=== PATIENT | male | born 1950 | race Caucasian/White ===

== ENCOUNTER 2021-08-28 09:00 | Observation (INO) | payer MEDICARE ==
[~2021-08-28] VITALS: Ht 180.3 cm; Wt 126.0 kg
[2021-08-28 09:51] LABS: BASOPHILS % (AUTO) 0.5 % (0.0-5.0); EOSINOPHILS % (AUTO) 1.6 % (0.0-8.0); HEMATOCRIT 40.4 % (42-54); LYMPHOCYTES % (AUTO) 27.1 % (21.0-51.0); MEAN CORPUSCULAR HEMOGLOBIN 32.9 pg (27.0-33.0); MEAN CORPUSCULAR HGB CONC 34.9 g/dL (32.0-36.0); MEAN CORPUSCULAR VOLUME 94.2 fL (79-99); MONOCYTES % (AUTO) 8.9 % (3.0-13.0); NEUTROPHILS % (AUTO) 61.7 % (40.0-77.0); PLATELET COUNT (AUTO) 231 K/uL (130-400); RED BLOOD CELL COUNT(AUTO) 4.29 MIL/uL (4.50-6.20); WHITE BLOOD COUNT (AUTO) 5.5 K/uL (4.8-10.8)
[2021-08-28 10:01] LABS: POTASSIUM 4.2 mmol/L (3.5-5.1)
[2021-08-28 10:04] LABS: INR 1.05 (0.85-1.15); PROTHROMBIN TIME 11.4 SEC (9.6-11.6)
[2021-08-28 10:05] LABS: PARTIAL THROMBOPLASTIN TIME 28.2 SEC (26.3-35.5)
[2021-08-28 10:23] VITALS: BP 179/73
[2021-08-28 10:57] LABS: APPEARANCE,URINE Clear (CLEAR); BILIRUBIN,URINE Negative (NEGATIVE); COLOR,URINE Yellow (YELLOW); GLUCOSE, URINE (UA) Negative (NEGATIVE); KETONES,URINE Negative (NEGATIVE); LEUKOCYTE ESTERASE ,URINE Negative (NEGATIVE); NITRATE,URINE Negative (NEGATIVE); OCCULT BLOOD,URINE Negative (NEGATIVE); PROTEIN,URINE Negative (NEGATIVE); UROBILINOGEN,URINE 0.2 mg/dL (0.2-1.0)
[2021-08-28] MEDS ORDERED: ZINC220T4 PO (11:20)
[2021-08-28] MEDS ORDERED: ASPI-1443 PO (11:20)
[2021-08-28] MEDS ORDERED: TAMS-1 PO (11:20)
[2021-08-28] MEDS ORDERED: VALS1TAB4 PO (11:20)
[2021-08-28] MEDS ORDERED: TADA5TAB PO (11:20)
[2021-08-28] MEDS ORDERED: BUPR300T53 PO (11:20)
[2021-08-28] MEDS ORDERED: METO-391 PO (11:20)
[2021-08-28] MEDS ORDERED: VITA1CAP85 PO (11:20)
[2021-08-28] MEDS ORDERED: OXCA300T46 PO (11:20)
[2021-08-28] MEDS ORDERED: ALPH50CA PO (11:20)
[2021-08-28] MEDS ORDERED: ASCO100031 PO (11:20)
[2021-08-28] MEDS ORDERED: FINA5TAB41 PO (11:20)
[2021-08-28] MEDS ORDERED: RELIEF FACTOR PO (11:20)
[2021-08-31] VITALS (26 sets, daily range): BP systolic 117–167; BP diastolic 67–104
[2021-08-31] MEDS ORDERED: DEXAMETHASONE SOD PHOSPHATE 10MG/ML 1ML VIAL ONE (07:10)
[2021-08-31] MEDS ORDERED: SUCCINYLCHOLINE CHLORIDE 20 MG/ML 10 ML VIAL ONE (07:10)
[2021-08-31] MEDS ORDERED: GLYCOPYRROLATE 1 MG/5 ML SYRINGE ONE (07:10)
[2021-08-31] MEDS ORDERED: LIDOCAINE PF 100MG/5ML (2%) SYRINGE 5ML ONE (07:10)
[2021-08-31] MEDS ORDERED: NEOSTIGMINE 5MG/5ML SYR IV ONE (07:10)
[2021-08-31] MEDS ORDERED: PROPOFOL 10 MG/ML 20ML VIAL IV ONE (07:10)
[2021-08-31] MEDS ORDERED: MIDAZOLAM HCL 1 MG/ML 2ML VIAL ONE (07:10)
[2021-08-31] MEDS ORDERED: ONDANSETRON 4MG INJ ONE (07:11)
[2021-08-31] MEDS ORDERED: FENTANYL CITRATE PF 50 MCG/1 ML 2ML VIAL ONE ×2 (07:11→11:11)
[2021-08-31] MEDS ORDERED: ROCURONIUM 10MG/1ML SYR 10 MG/ML ML ONE (07:11)
[2021-08-31] MEDS ORDERED: ROPIVACAINE 0.5% 5MG/ML 30ML IJ ONE (07:16)
[2021-08-31] MEDS ORDERED: LACTATED RINGERS 1000ML 1,000 ML IV ONE (08:39)
[2021-08-31] MEDS: CEFAZOLIN SODIUM 1 GM VIAL ONE ×2 (08:52→10:40)
[2021-08-31] MEDS ORDERED: CEFAZOLIN SODIUM 1 GM VIAL ONE ×3 (09:19→18:45)
[2021-08-31] MEDS ORDERED: TRANEXAMIC ACID 1000MG/10ML ONE ×2 (09:20→12:29)
[2021-08-31] MEDS ORDERED: POTASSIUM CHLORIDE 20MEQ/100ML 100 ML IV PRN (12:30)
[2021-08-31] MEDS ORDERED: KETOROLAC 15MG/ML VIAL (15MG/ML) IV PRN (12:30)
[2021-08-31] MEDS ORDERED: ONDANSETRON 4MG INJ IVP PRN (12:30)
[2021-08-31] MEDS ORDERED: OXYCODONE HCL 5 MG TAB PO PRN (12:30)
[2021-08-31] MEDS ORDERED: CALCIUM CARB 500MG PO PRN (12:30)
[2021-08-31] MEDS ORDERED: POTASSIUM CHLORIDE 10% ELIXIR 20 MEQ/15 ML UDCUP PO PRN (12:30)
[2021-08-31] MEDS ORDERED: DiphenhydrAMINE HCL 50 MG/ML VIAL IVP PRN (12:30)
[2021-08-31] MEDS ORDERED: FERROUS FUMARATE 324 MG TABLET PO PRN (12:30)
[2021-08-31] MEDS ORDERED: LIDOCAINE HCL-MPF 1% 2ML VIAL IV PRN (12:30)
[2021-08-31] MEDS: ACETAMINOPHEN 500 MG TABLET PO SCH ×2 (12:30→19:52)
[2021-08-31] MEDS ORDERED: TRAMADOL HCL 50 MG TABLET PO PRN (12:30)
[2021-08-31] MEDS ORDERED: MEPERIDINE-PF 25 MG/ML SYG ONE ×2 (13:40→13:50)
[2021-08-31] MEDS: 0.9%NACL 1000ML 1,000 ML IV SCH ×2 (14:47→22:30)
[2021-08-31] MEDS ORDERED: TADALAFIL 5 MG PO SCH (15:00)
[2021-08-31] MEDS: LOSARTAN 100 MG TABLET PO SCH ×2 (18:39→19:51)
[2021-08-31] MEDS: HYDROCHLOROTHIAZIDE 25 MG TABLET PO SCH ×2 (18:40→19:51)
[2021-08-31] MEDS: TAMSULOSIN HCL 0.4 MG CAP.ER.24H PO SCH ×2 (18:41→19:49)
[2021-08-31] MEDS: BUPROPION HCL 300 MG PO SCH (18:41)
[2021-08-31] MEDS: METOPROLOL SUCCINATE 50 MG TAB.SR.24H PO SCH ×2 (18:42→19:50)
[2021-08-31] MEDS: CEFAZOLIN SODIUM 100 GM IV SCH (18:53)
[2021-08-31] MEDS ORDERED: LOSARTAN 100 MG TABLET ONE (19:31)
[2021-08-31] MEDS ORDERED: TAMSULOSIN HCL 0.4 MG CAP.ER.24H ONE (19:31)
[2021-08-31] MEDS ORDERED: VITAMIN B COMPLEX 1 CAPSULE ONE (19:32)
[2021-08-31] MEDS ORDERED: FINASTERIDE 5 MG TABLET ONE (19:32)
[2021-08-31] MEDS ORDERED: ASPIRIN 81 MG EC TAB ONE (19:33)
[2021-08-31] MEDS ORDERED: CELECOXIB 200 MG CAP ONE (19:33)
[2021-08-31] MEDS ORDERED: ASCORBIC ACID 500 MG TAB ONE (19:33)
[2021-08-31] MEDS: FINASTERIDE 5 MG TABLET PO SCH (19:49)
[2021-08-31] MEDS: ASPIRIN 81 MG EC TAB PO SCH (19:50)
[2021-08-31] MEDS: FAMOTIDINE 20MG TAB PO SCH (19:50)
[2021-08-31] MEDS: CELECOXIB 200 MG CAP PO SCH (19:50)
[2021-08-31] MEDS: VITAMIN B COMPLEX 1 CAPSULE PO SCH (19:50)
[2021-08-31] MEDS: ASCORBIC ACID 500 MG TAB PO SCH (19:52)
[2021-08-31] MEDS: ALPHA LIPOIC ACID 50 MG PO SCH (19:53)
[2021-08-31] MEDS: RELIEF FACTOR PO SCH (19:53)
[2021-08-31] MEDS: PREGABALIN 25 MG CAP PO SCH (19:54)
[2021-08-31] MEDS: ZINC SULFATE 50 MG PO SCH (19:54)
[2021-08-31] MEDS: OXCARBAZEPINE 300 MG TAB PO SCH (19:54)
[2021-08-31] MEDS ORDERED: ASPIRIN 81 MG EC TAB PO SCH (21:00)
[2021-09-01] MEDS: CEFAZOLIN SODIUM 100 GM IV SCH (01:11)
[2021-09-01] MEDS: OXYCODONE HCL 5 MG TAB PO PRN ×2 (01:17→16:25)
[2021-09-01] MEDS: ACETAMINOPHEN 500 MG TABLET PO SCH ×3 (03:44→19:59)
[2021-09-01 03:54] VITALS: BP 106/47
[2021-09-01 04:13] LABS: HEMATOCRIT 35.7 % (42-54); MEAN CORPUSCULAR HEMOGLOBIN 32.9 pg (27.0-33.0); MEAN CORPUSCULAR HGB CONC 35.3 g/dL (32.0-36.0); MEAN CORPUSCULAR VOLUME 93.2 fL (79-99); RED BLOOD CELL COUNT(AUTO) 3.83 MIL/uL (4.50-6.20); WHITE BLOOD COUNT (AUTO) 8.8 K/uL (4.8-10.8)
[2021-09-01 04:18] LABS: POTASSIUM 3.8 mmol/L (3.5-5.1)
[2021-09-01] MEDS: KCL 20 MEQ ERTAB PO PRN ×2 (06:08→10:05)
[2021-09-01 08:00] VITALS: BP 103/59
[2021-09-01] MEDS ORDERED: TAMSULOSIN HCL 0.4 MG CAP.ER.24H PO SCH (09:00)
[2021-09-01] MEDS: ASPIRIN 81 MG EC TAB PO SCH ×2 (09:59→19:57)
[2021-09-01] MEDS: CELECOXIB 200 MG CAP PO SCH ×2 (09:59→19:58)
[2021-09-01] MEDS: PREGABALIN 25 MG CAP PO SCH ×2 (09:59→19:58)
[2021-09-01] MEDS: POLYETHYLENE GLYCOL 3350 17 GM POWD.PACK PO SCH (09:59)
[2021-09-01] MEDS: FAMOTIDINE 20MG TAB PO SCH ×2 (09:59→19:57)
[2021-09-01 11:33] VITALS: BP 104/59
[2021-09-01 16:00] VITALS: BP 122/72
[2021-09-01 19:57] VITALS: BP 137/77
[2021-09-01] MEDS: TAMSULOSIN HCL 0.4 MG CAP.ER.24H PO SCH (19:58)
[2021-09-01] MEDS: FINASTERIDE 5 MG TABLET PO SCH (19:58)
[2021-09-01] MEDS: HYDROCHLOROTHIAZIDE 25 MG TABLET PO SCH (19:58)
[2021-09-01] MEDS: LOSARTAN 100 MG TABLET PO SCH (19:58)
[2021-09-01] MEDS: VITAMIN B COMPLEX 1 CAPSULE PO SCH (19:59)
[2021-09-01] MEDS: OXCARBAZEPINE 300 MG TAB PO SCH (19:59)
[2021-09-01] MEDS: ASCORBIC ACID 500 MG TAB PO SCH (19:59)
[2021-09-01] MEDS: METOPROLOL SUCCINATE 50 MG TAB.SR.24H PO SCH (20:00)
[2021-09-01] MEDS: ALPHA LIPOIC ACID 50 MG PO SCH (20:00)
[2021-09-01] MEDS: RELIEF FACTOR PO SCH (20:00)
[2021-09-01] MEDS: BUPROPION HCL 300 MG PO SCH (20:00)
[2021-09-01] MEDS: ZINC SULFATE 50 MG PO SCH (20:01)
[2021-09-01 23:47] VITALS: BP 128/68
[2021-09-02 03:38] VITALS: BP 119/78
[2021-09-02] MEDS: ACETAMINOPHEN 500 MG TABLET PO SCH ×2 (03:54→12:50)
[2021-09-02 07:59] VITALS: BP 139/79
[2021-09-02] MEDS: POLYETHYLENE GLYCOL 3350 17 GM POWD.PACK PO SCH (08:51)
[2021-09-02] MEDS: CELECOXIB 200 MG CAP PO SCH (08:51)
[2021-09-02] MEDS: ASPIRIN 81 MG EC TAB PO SCH (08:51)
[2021-09-02] MEDS: PREGABALIN 25 MG CAP PO SCH (08:51)
[2021-09-02] MEDS: FAMOTIDINE 20MG TAB PO SCH (08:51)
[2021-09-02 10:43] VITALS: BP 132/72
[2021-09-03] MEDS ORDERED: BISACODYL 10 MG SUPP.RECT RC PRN (12:30)
== END 2021-09-02 15:36 ==
LOC: DAHIP 08-31 07:11 → 4BH 08-31 14:35
PROVIDERS: ADMIT Orthopaedic Surgery; ATTEND Orthopaedic Surgery
DX: M17.12 Unilateral primary osteoarthritis, left knee (principal); Z20.822 Contact with and (suspected) exposure to COVID-19; D62 Acute posthemorrhagic anemia; I10 Essential (primary) hypertension; G47.33 Obstructive sleep apnea (adult) (pediatric); K21.9 Gastro-esophageal reflux disease without esophagitis; Z79.899 Other long term (current) drug therapy; Z87.891 Personal history of nicotine dependence
CPT/HCPCS: 27447; 36415 ×2; 64447; 76942; 80048 ×2; 81003; 85025; 85027; 85610; 85730; 87088; 87635; 87641; 88305; 88311; 96365; 96366; 97039 ×3; 97116 ×4; 97161; 97530 ×3; A4215; A4221; A4222; A4223; A4600; A4649 ×4; A4663; A4930 ×2; A6260; A9272; C1776; G0378 ×50; G0379; J0330; J0690 ×5; J1100; J2001; J2175 ×2; J2250; J2405; J2704; J2710; J2795; J3010 ×2; J3490 ×3; J7120 ×2

== ENCOUNTER 2022-01-21 11:00 | Inpatient (IN) | payer MEDICARE ==
[~2022-01-21] VITALS: Ht 180.3 cm; Wt 129.1 kg
[2022-01-21 09:24] LABS: BASOPHILS % (AUTO) 0.3 % (0.0-5.0); HEMATOCRIT 39.1 % (42-54); LYMPHOCYTES % (AUTO) 24.7 % (21.0-51.0); MEAN CORPUSCULAR HEMOGLOBIN 32.2 pg (27.0-33.0); NEUTROPHILS % (AUTO) 65.7 % (40.0-77.0); PLATELET COUNT (AUTO) 204 K/uL (130-400); RED BLOOD CELL COUNT(AUTO) 4.25 MIL/uL (4.50-6.20); RED CELL DISTRIBUTION WIDTH 12.4 % (11.0-15.5)
[2022-01-21 09:29] LABS: APPEARANCE,URINE CLEAR (CLEAR); BILIRUBIN,URINE NEGATIVE (NEGATIVE); COLOR,URINE YELLOW (YELLOW); GLUCOSE, URINE (UA) NEGATIVE (NEGATIVE); KETONES,URINE NEGATIVE (NEGATIVE); LEUKOCYTE ESTERASE ,URINE NEGATIVE (NEGATIVE); NITRATE,URINE NEGATIVE (NEGATIVE); OCCULT BLOOD,URINE NEGATIVE (NEGATIVE); PH,URINE 5.5 (5.0-8.0); PROTEIN,URINE NEGATIVE (NEGATIVE); UROBILINOGEN,URINE 0.2 mg/dL (0.2-1.0)
[2022-01-21 09:50] LABS: CREATININE 0.9 mg/dL (0.5-1.5); POTASSIUM 4.2 mmol/L (3.5-5.1)
[2022-01-21 10:07] LABS: INR 1.05 (0.85-1.15); PROTHROMBIN TIME 11.4 SEC (9.6-11.6)
[~2022-01-21 11:00] MED LIST: BUPR300T53 PO; FINA5TAB41 PO; OXCA300T46 PO; VALS1TAB4 PO
[2022-01-22 08:36] VITALS: BP 151/86
[2022-01-22] MEDS ORDERED: AEC81 PO (09:03)
[2022-01-22] MEDS ORDERED: TAMS-1 PO (09:03)
[2022-01-22] MEDS ORDERED: METO-409 PO (09:03)
[2022-01-25] VITALS (24 sets, daily range): BP systolic 96–127; BP diastolic 51–84
[2022-01-25] MEDS ORDERED: CEFAZOLIN SODIUM 3 GM in DEXTROSE 5%-WATER 100 ML IVP ONE (09:00)
[2022-01-25] MEDS ORDERED: CEFAZOLIN SODIUM 1 GM VIAL ONE ×2 (09:52→13:28)
[2022-01-25] MEDS ORDERED: LACTATED RINGERS 1000ML 1,000 ML IV ONE (09:52)
[2022-01-25] MEDS ORDERED: ACETAMINOPHEN 500 MG TABLET ONE (12:23)
[2022-01-25] MEDS ORDERED: KETOROLAC 15MG/ML VIAL (15MG/ML) ONE (12:23)
[2022-01-25] MEDS ORDERED: CELECOXIB 200 MG CAP ONE (12:24)
[2022-01-25] MEDS ORDERED: METO-391 PO (12:52)
[2022-01-25] MEDS ORDERED: SUCCINYLCHOLINE CHLORIDE 20 MG/ML 10 ML VIAL ONE (13:05)
[2022-01-25] MEDS ORDERED: DEXAMETHASONE SOD PHOSPHATE 10MG/ML 1ML VIAL ONE (13:05)
[2022-01-25] MEDS ORDERED: GLYCOPYRROLATE 1 MG/5 ML SYRINGE ONE (13:06)
[2022-01-25] MEDS ORDERED: FENTANYL CITRATE PF 50 MCG/1 ML 2ML VIAL ONE ×2 (13:06→14:20)
[2022-01-25] MEDS ORDERED: NEOSTIGMINE 5MG/5ML SYR IV ONE (13:06)
[2022-01-25] MEDS ORDERED: ONDANSETRON 4MG INJ ONE ×2 (13:06→16:13)
[2022-01-25] MEDS ORDERED: ROCURONIUM 10MG/1ML SYR 10 MG/ML ML ONE ×2 (13:07→14:19)
[2022-01-25] MEDS ORDERED: MIDAZOLAM HCL 1 MG/ML 2ML VIAL ONE (13:07)
[2022-01-25] MEDS ORDERED: PROPOFOL 10 MG/ML 20ML VIAL IV ONE (13:09)
[2022-01-25] MEDS ORDERED: TRANEXAMIC ACID 1000MG/10ML ONE (13:28)
[2022-01-25] MEDS ORDERED: ROPIVACAINE 0.5% 5MG/ML 30ML IJ ONE (13:29)
[2022-01-25] MEDS ORDERED: EPHEDRINE SULFATE 50 MG/ML AMPULE ONE (14:13)
[2022-01-25] MEDS ORDERED: CEFAZOLIN SODIUM 1 GM VIAL IRRIG ONE (14:16)
[2022-01-25] MEDS ORDERED: MEPERIDINE-PF 25 MG/ML SYG ONE (15:44)
[2022-01-25] MEDS ORDERED: ONDANSETRON 4MG INJ IVP PRN (16:00)
[2022-01-25] MEDS ORDERED: POTASSIUM CHLORIDE 20MEQ/100ML 100 ML IV PRN (16:00)
[2022-01-25] MEDS ORDERED: KETOROLAC 15MG/ML VIAL (15MG/ML) IV PRN (16:00)
[2022-01-25] MEDS: ACETAMINOPHEN 500 MG TABLET PO SCH (16:00)
[2022-01-25] MEDS ORDERED: POTASSIUM CHLORIDE 10% ELIXIR 20 MEQ/15 ML UDCUP PO PRN (16:00)
[2022-01-25] MEDS ORDERED: DiphenhydrAMINE HCL 50 MG/ML VIAL IVP PRN (16:00)
[2022-01-25] MEDS ORDERED: KCL 20 MEQ ERTAB PO PRN (16:00)
[2022-01-25] MEDS ORDERED: TEMAZEPAM 15 MG CAPSULE PO PRN (16:00)
[2022-01-25] MEDS ORDERED: LIDOCAINE HCL-MPF 1% 2ML VIAL IV PRN (16:00)
[2022-01-25] MEDS ORDERED: FERROUS FUMARATE 324 MG TABLET PO PRN (16:00)
[2022-01-25] MEDS ORDERED: TRAMADOL HCL 50 MG TABLET PO PRN (16:00)
[2022-01-25] MEDS: 0.9%NACL 1000ML 1,000 ML IV SCH (18:11)
[2022-01-25] MEDS: VALSARTAN PO SCH (21:00)
[2022-01-25] MEDS: HYDROCHLOROTHIAZIDE PO SCH (21:00)
[2022-01-25] MEDS: Bupropion HCl (Wellbutrin Xl) 300 MG PO SCH (21:00)
[2022-01-25] MEDS: TAMSULOSIN HCL 0.4 MG CAP.ER.24H PO SCH (21:25)
[2022-01-25] MEDS: METOPROLOL SUCCINATE 50 MG TAB.SR.24H PO SCH (21:26)
[2022-01-25] MEDS: FINASTERIDE 5 MG TABLET PO SCH (21:26)
[2022-01-25] MEDS: CELECOXIB 200 MG CAP PO SCH (21:26)
[2022-01-25] MEDS: FAMOTIDINE 20MG TAB PO SCH (21:26)
[2022-01-25] MEDS: PREGABALIN 25 MG CAP PO SCH (21:26)
[2022-01-25] MEDS: OXCARBAZEPINE 300 MG TAB PO SCH (21:27)
[2022-01-25] MEDS: CEFAZOLIN SODIUM 1 GM VIAL IVP SCH (21:32)
[2022-01-26] VITALS (7 sets, daily range): BP systolic 93–124; BP diastolic 51–73
[2022-01-26] MEDS ORDERED: METOPROLOL SUCCINATE 50 MG TAB.SR.24H PO SCH (00:30)
[2022-01-26] MEDS: ACETAMINOPHEN 500 MG TABLET PO SCH ×4 (00:33→21:07)
[2022-01-26] MEDS: 0.9%NACL 1000ML 1,000 ML IV SCH ×2 (02:00→12:00)
[2022-01-26 04:17] LABS: HEMATOCRIT 34.7 % (42-54); MEAN CORPUSCULAR HGB CONC 35.4 g/dL (32.0-36.0); RED BLOOD CELL COUNT(AUTO) 3.73 MIL/uL (4.50-6.20); RED CELL DISTRIBUTION WIDTH 12.3 % (11.0-15.5); WHITE BLOOD COUNT (AUTO) 10.4 K/uL (4.8-10.8)
[2022-01-26] MEDS: CEFAZOLIN SODIUM 1 GM VIAL IVP SCH (04:23)
[2022-01-26 04:28] LABS: CREATININE 1.1 mg/dL (0.5-1.5); POTASSIUM 4.2 mmol/L (3.5-5.1)
[2022-01-26] MEDS: CELECOXIB 200 MG CAP PO SCH ×2 (09:46→21:08)
[2022-01-26] MEDS: PREGABALIN 25 MG CAP PO SCH ×2 (09:46→21:10)
[2022-01-26] MEDS: TAMSULOSIN HCL 0.4 MG CAP.ER.24H PO SCH ×2 (09:47→21:08)
[2022-01-26] MEDS: FAMOTIDINE 20MG TAB PO SCH ×2 (09:47→21:05)
[2022-01-26] MEDS: APIXABAN 2.5 MG TABLET PO SCH ×2 (09:47→21:05)
[2022-01-26] MEDS: CALCIUM CARB 500MG PO PRN ×2 (09:47→21:05)
[2022-01-26] MEDS: POLYETHYLENE GLYCOL 3350 17 GM POWD.PACK PO SCH (09:47)
[2022-01-26] MEDS: VALSARTAN PO SCH (21:00)
[2022-01-26] MEDS: Bupropion HCl (Wellbutrin Xl) 300 MG PO SCH (21:00)
[2022-01-26] MEDS: HYDROCHLOROTHIAZIDE PO SCH (21:00)
[2022-01-26] MEDS: OXYCODONE HCL 5 MG TAB PO PRN (21:07)
[2022-01-26] MEDS: METOPROLOL SUCCINATE 50 MG TAB.SR.24H PO SCH (21:08)
[2022-01-26] MEDS: OXCARBAZEPINE 300 MG TAB PO SCH (21:08)
[2022-01-26] MEDS: FINASTERIDE 5 MG TABLET PO SCH (21:08)
[2022-01-27] MEDS: OXYCODONE HCL 5 MG TAB PO PRN ×3 (00:11→18:01)
[2022-01-27 04:36] VITALS: BP 133/75
[2022-01-27] MEDS: ACETAMINOPHEN 500 MG TABLET PO SCH ×2 (05:28→14:11)
[2022-01-27] MEDS: CELECOXIB 200 MG CAP PO SCH (07:51)
[2022-01-27] MEDS: TAMSULOSIN HCL 0.4 MG CAP.ER.24H PO SCH (07:51)
[2022-01-27] MEDS: APIXABAN 2.5 MG TABLET PO SCH (07:51)
[2022-01-27] MEDS: FAMOTIDINE 20MG TAB PO SCH (07:51)
[2022-01-27] MEDS: POLYETHYLENE GLYCOL 3350 17 GM POWD.PACK PO SCH (07:51)
[2022-01-27] MEDS: PREGABALIN 25 MG CAP PO SCH (07:51)
[2022-01-27 08:00] VITALS: BP 127/82
[2022-01-27 12:00] VITALS: BP 119/65
[2022-01-27 16:00] VITALS: BP 138/81
[2022-01-28] MEDS ORDERED: BISACODYL 10 MG SUPP.RECT RC PRN (16:00)
== END 2022-01-27 19:15 | DRG 470 ==
LOC: EDSTATUS 11:00 → OBSVTOIN 01-25 10:12 → DAHIP 01-25 10:12 → 4AH 01-25 17:50
PROVIDERS: ADMIT Orthopaedic Surgery; ATTEND Orthopaedic Surgery
PROC: 0SRC0J9 Replacement of Right Knee Joint with Synthetic Substitute, Cemented, Open Approach (ICD-10-PCS; principal; 2022-01-25 14:16)
PROC: 5A09357 Assistance with Respiratory Ventilation, Less than 24 Consecutive Hours, Continuous Positive Airway Pressure (ICD-10-PCS; 2022-01-25 14:16)
PROC: 5A09357 Assistance with Respiratory Ventilation, Less than 24 Consecutive Hours, Continuous Positive Airway Pressure (ICD-10-PCS; 2022-01-26)
DX: M17.11 Unilateral primary osteoarthritis, right knee (principal); I10 Essential (primary) hypertension; I48.91 Unspecified atrial fibrillation; Z20.822 Contact with and (suspected) exposure to COVID-19; Z96.652 Presence of left artificial knee joint; Z85.9 Personal history of malignant neoplasm, unspecified; Z87.891 Personal history of nicotine dependence; Z82.49 Family history of ischemic heart disease and other diseases of the circulatory system; G89.29 Other chronic pain; D64.89 Other specified anemias; Z86.2 Personal history of diseases of the blood and blood-forming organs and certain disorders involving the immune mechanism
CPT/HCPCS: 36415; 80048; 81003; 85025; 85027; 85610; 87088; 87635; 87641; 96374; 97039; G0378; J0330; J0690; J1100; J1885; J2175; J2250; J2405; J2704; J2710; J2795; J3010; J3490; J7060; J7120

== ENCOUNTER → 2022-06-20 | Outpatient (CLI) | payer MEDICARE ==
[~2022-06-20] MED LIST changes: +METO-391 PO; +TAMS-1 PO
== END | disposition home or self-care (01) ==
LOC: SLP 20:20
PROVIDERS: ATTEND Internal Medicine Critical Care Medicine
DX: G47.33 Obstructive sleep apnea (adult) (pediatric) (principal)
CPT/HCPCS: 95810

== ENCOUNTER → 2022-06-26 | Outpatient (CLI) | payer MEDICARE | END | disposition home or self-care (01) | LOC: SLP 20:38 | PROVIDERS: ATTEND Internal Medicine Critical Care Medicine | DX: Z01.818 Encounter for other preprocedural examination (principal); G47.33 Obstructive sleep apnea (adult) (pediatric) | CPT/HCPCS: 95811 ==